=== PATIENT | female | born 1980 | race Caucasian/White ===

== ENCOUNTER 2021-08-04 13:51 | Emergency (ER) | payer OTHER, SELFPAY ==
[2021-08-04 14:08] VITALS: BP 135/91; PULSE 96; RESP 18; TEMP 36.9; O2SAT 100
--- NOTE | 2021-08-04 14:55 | ED.SKABFB ---
HPI - Skin/Abscess/Foreign Bdy General Chief complaint: Skin/Abscess/Foreign Body Stated complaint: knot on neck,coughing up bloody mucas Source: patient and RN notes reviewed Limitations: no limitations History of Present Illness HPI narrative: The vaccinated patient, a smoker/nondrinker, presents with skin eruption. Patient states she has a prior history of impetiginous eruptions [? possible staph]. Patient now reports a 2-day history of right neck eruption that has pink, raised slightly itchy and painful with surrounding minimal redness. No fever, discharge, abscess/induration, epistaxis; patient also comments she woke and had a mild cough that produced scant bloody, <teaspoon sputum. The patient has been informed that they may have pre-hypertension or Hypertension based on a BP reading in the department. I recommend that the patient call the primary care provider listed on their discharge instructions or a physician of their choice this week to arrange follow up for further evaluation of possible pre-hypertension or Hypertension Related Data Allergies Allergy/AdvReac Type Severity Reaction Status Date / Time Penicillins Allergy Hives Verified 08/04/21 16:30 Review of Systems Review of Systems: General/Constitutional: No weight loss,fever Eyes: N0: Redness,discharge Ears/Nose/Throat: No: Epistaxis,ear discharge Respiratory: Denies: Possible hemoptysis Gastrointestinal: No Vomiting, Bleeding-rectal Skin: No Lumps, REPORTS eruption Neurologic: No Focal Weakness,Sz Hematologic: Denies: Petechiae/Purpura Psychiatric: No: Suicida ideationl All Other Systems: Reviewed and Negative PMFSH Comments At time of signature, agree with nursing past medical, surgical, social and family history. There is no relevant family history pertinent to the presenting complaint Exam Narrative: General Appearance: Well nourished, Cooperative Skin: Warm, Dry ; macular papular and early papulovesicular eruption of the right neck with scant surrounding redness Head: Normocephalic Eye: PERRLA, Conjunctiva clear Ear: External ear normal Nose: Normal nose, Nare clear, friable mucosa Mouth/Throat: Normal appearing Neck Exam: Supple Respiratory: Airway patent, No respiratory distress Musculoskeletal: Moves all extremities, Non tender Neurological: A&O x3 Psychiatric: Normal mood, Normal affect Course Vital Signs Vital signs: Vital Signs Temperature 98.5 F 08/04/21 14:08 Pulse Rate 96 08/04/21 14:08 Respiratory Rate 18 08/04/21 14:08 Blood Pressure 135/91 H 08/04/21 14:08 Pulse Oximetry 100 08/04/21 14:08 Temperature 98.5 F 08/04/21 14:08 Pulse Rate 96 08/04/21 14:08 Respiratory Rate 18 08/04/21 14:08 Blood Pressure 135/91 H 08/04/21 14:08 Pulse Oximetry 100 08/04/21 14:08 Discharge Plan Discharge Clinical Impression: Vesicular eruption Patient Disposition: Home, Self-Care Condition: Stable Instructions: Antibiotic Form, MRSA (Methicillin-Resistant Staphylococcus Aureus) (ED) Additional Instructions: Keep photo log of area, return if worsens Take clindamycin with food or antacid; stop if diarrhea occurs Prescriptions: New clindamycin HCl 300 mg capsule 300 mg PO TID Qty: 15 RF: 0 mupirocin 2 % ointment 1 applic TOPICAL TID Qty: 30 RF: 0 Follow-up/Referrals: UNKNOWN,DOCTOR [Primary Care Provider] -
[2021-08-05 20:27] LABS: SARS-CoV-2 RNA PCR Negative
== END 2021-08-04 15:03 | disposition home or self-care (01) ==
PROVIDERS: Emergency Provider Emergency Medicine
DX: R23.8 Other skin changes (principal); Z20.822 Contact with and (suspected) exposure to COVID-19
CPT/HCPCS: 99203; C9803; G0463; U0003; U0005